=== PATIENT | female | born 1990 | race Caucasian/White ===

== ENCOUNTER 2016-11-23 07:15 | Day surgery (SDC) | payer BC ==
--- NOTE | ~2016-11-23 | OP ---
Record Of Operation [facility] [address] [place]. [address] NAME: ASHLY STAPLETON : 89 STATUS : [facility] – [place], [place] PAT#: [id number] AGE: 26 ADM/REG DATE : 11/23/16 MR#: [id number] REPORT SERV DATE: 11/23/16 DICTATED BY: MARTINEZ BAKER DATE: 11/23/16 REPORT STATUS : Draft TRANSCRIBED BY: MODL DATE: 11/23/16 DATE OF PROCEDURE: PREOPERATIVE DIAGNOSIS: Herniated nucleus pulposus with extrusion, left L5-S1. POSTOPERATIVE DIAGNOSIS: Herniated nucleus pulposus with extrusion, left L5-S1. PROCEDURE: 1. Microscopic and navigation-assisted surgery. 2. Left L5-S1 microdiskectomy. SURGEON: Martinez Baker D.O. CONSULTING ENGINEER: Jose Robison. ANESTHESIA: General. ESTIMATED BLOOD LOSS: Less than 5 mL. INDICATIONS FOR SURGERY: A very pleasant 26-year-old female, with intractable left hip and leg pain that has been present for several weeks. The pain now over the last couple weeks has become so intolerable that she can not take it another day, the pain is 10/10. The pain is all the way down the buttock into the legs. She has essentially no back pain. She has tried different types of conservative care which has not helped, in fact it has gotten worse. She has had a plan MRI showing a very large extruded disk herniation with severe impingement of the S1 nerve root on the left. She is brought to surgery, due to the above circumstances, and failure of conservative care. Prior to surgery, risks, benefits, alternatives, and expectations were explained. Consent form has been signed. Please note, because of the complexity of the surgery and the need to identify correct level of surgery intraoperatively, as well as desire to carry out the safest and most precise dissection, I feel intraoperative navigation is mandatory. DESCRIPTION OF PROCEDURE: Antibiotic prophylaxis was given. Neurophysiology monitoring leads were inserted. The patient was brought to the operative suite. General anesthetic including endotracheal intubation was carried out. The patient was placed prone on a Bala spine frame. Bony prominences were carefully padded. Thoracolumbar spine was scrubbed with Hibiclens solution. DuraPrep was painted. Sterile drapes were applied. Intraoperative CT scan with O-arm was obtained, CT information used to register the navigational system. A 2 cm skin incision was carried out at the midline at L5-S1, which was identified and marked with navigational assistance. A blunt navigated probe was placed through the fascia and muscle and docked over the interlaminar space at L5-S1. Muscle dilators were inserted, followed by placement of a tubular retractor attached to an arm mount on the table. The Record Of Operation [facility] [address] [place]. [address] NAME: ASHLY STAPLETON : 89 STATUS : [facility] – [place], [place] PAT#: [id number] AGE: 26 ADM/REG DATE : 11/23/16 MR#: [id number] REPORT SERV DATE: 11/23/16 DICTATED BY: MARTINEZ BAKER DATE: 11/23/16 REPORT STATUS : Draft TRANSCRIBED BY: NIR DATE: 11/23/16 microscope was sterilely draped and used throughout the remainder of the procedure. With navigational assistance, I determined if I needed to remove any of the lamina of L5, and I did need to remove approximately 10% of the inferior lamina of L5 in order to reach the cephalad boundary of the disk space. I used a 3 mm ady bur, removed approximately 10% of the inferior lamina. None of the medial facet joint that required removal. The lateral ligamentum flavum was elevated and removed. This exposed a very large extruded disk herniation, which was impinging the S1 nerve root laterally. The diskectomy was removed with pituitary rongeurs, and after the diskectomy there was no further compression at all on the thecal sac or the nerve root. The wound was irrigated. The retractor was removed. No bleeding was noted. The fascia was allowed to reapproximate itself. The subcutaneous tissue was closed with 2-0 Vicryl sutures, 2-0 vertical mattress nylon suture was used for skin closure. Sterile dressings were applied. The patient returned to supine position, awakened, extubated, taken to recovery room in satisfactory condition having tolerated the procedure well. Sponge, needle, and instrument counts were correct. No intraoperative complications were noted. CLEMENTINA/NIR Martinez Baker D.O. / [id number] CC: Martinez Baker D.O.
[~2016-11-23 07:15] MED LIST: FLEX PO; NORCO1 TA1 PO
== END 2016-11-23 14:48 | disposition home or self-care (01) ==
LOC: SDC 07:15
PROVIDERS: Orthopaedic Surgery Orthopaedic Surgery of the Spine
PROC: 01NB0ZZ Release Lumbar Nerve, Open Approach (ICD-10-PCS; 2016-11-23)
PROC: 0SB20ZZ Excision of Lumbar Vertebral Disc, Open Approach (ICD-10-PCS; principal; 2016-11-23 10:15)
DX: M51.17 Intervertebral disc disorders with radiculopathy, lumbosacral region (principal); E16.2 Hypoglycemia, unspecified; F17.210 Nicotine dependence, cigarettes, uncomplicated; Z79.891 Long term (current) use of opiate analgesic; Z79.899 Other long term (current) drug therapy
CPT/HCPCS: 82962; 84703; 88304; 88311; A9270-GY; J0690; J1170; J1885; J2250; J2274; J2405; J2710; J3010

== ENCOUNTER 2016-12-13 04:41 | Emergency (ER) | payer BC | END 2016-12-13 05:43 | disposition home or self-care (01) | LOC: ER 04:41 | DX: M54.5 Low back pain (principal); Z79.899 Other long term (current) drug therapy | CPT/HCPCS: 72131; 96372; 99284; J2800 ==

== ENCOUNTER 2016-12-27 09:22 | Day surgery (SDC) | payer BC ==
--- NOTE | ~2016-12-27 | OP ---
Record Of Operation [facility] [address] [place]. [address] NAME: ASHLY STAPLETON : 89 STATUS : [facility]#: [id number] AGE: 26 ADM/REG DATE : 12/27/16 MR#: [id number] REPORT SERV DATE: 12/27/16 DICTATED BY: MARTINEZ BAKER DATE: 12/27/16 REPORT STATUS : Draft TRANSCRIBED BY: MODL DATE: 12/27/16 DATE OF PROCEDURE: 12/27/2016 PREOPERATIVE DIAGNOSES: 1. Acute intractable left leg pain. 2. Large recurrent herniated nucleus pulposus, left L5-S1. POSTOPERATIVE DIAGNOSES: 1. Acute intractable left leg pain. 2. Large recurrent herniated nucleus pulposus, left L5-S1. PROCEDURE: 1. Microscopic and navigation assisted surgery. 2. Left L5-S1 microdiskectomy. SURGEON: Martinez Baker D.O. CHRONOMETER TESTER: Jose Robison. ANESTHESIA: General. ESTIMATED BLOOD LOSS: 10 mL. INDICATIONS FOR SURGERY: A 26-year-old female, who had a left-sided L5-S1 microdiskectomy about a month ago. She was doing exceptionally well and had absolutely no pain postoperatively, and returned to work, and was doing everything she normal wanted to do, but just had a sudden return of severe pain just a few days ago. The pain was 10/10 to the point she could stand, walk, or do anything. She was immediately seen by my physician's dental office assistant, who did a new MRI which showed a very large recurrent HNP with impingement at L5- S1. The patient was seen yesterday in the office and I advised her that, we could try it treating it conservatively if she wanted to try, and she did want to try conservative care, we gave her some pain pills, she was on steroids etc., but she came to the office this morning saying she just could not take the pain any longer. She had to do some immediately. The patient having been seen by my physician's dental office assistant, was sent to the hospital for a repeat microdiskectomy after she discussed it with me. I advised and I felt this was only other option we ever had at this point. The patient knows there is always a known risk of a third time recurrent herniation and if that should occur she will have to have additional surgery up to and including fusion, because she has lost so much disk already, and was at risk, and is at risk of developing instability. There is always a risk of infection. There can be third time recurrent herniation. There could be injury to the thecal sac, nerve roots, numbness, tingling, weakness, paralysis, etc. No guarantees that this will resolve any or all symptoms. Consent form has been signed. PROCEDURE IN DETAIL: Antibiotic prophylaxis was given, brought to the operative suite, general anesthetic including endotracheal intubation was administered. She was placed prone on a Bala spine frame. Bony prominences were carefully padded. Thoracolumbar spine was Record Of Operation [facility] [address] [place]. [address] NAME: ASHLY STAPLETON : 89 STATUS : [facility]#: [id number] AGE: 26 ADM/REG DATE : 12/27/16 MR#: [id number] REPORT SERV DATE: 12/27/16 DICTATED BY: MARTINEZ BAKER DATE: 12/27/16 REPORT STATUS : Draft TRANSCRIBED BY: NIR DATE: 12/27/16 scrubbed with Hibiclens solution. DuraPrep was painted. Sterile drapes were applied. Because of the complexity of surgery and the need to identify the correct level of surgery intraoperatively, as well as the desire to carry out the safest, and most precise dissection, we felt that intraoperative navigation was mandatory. Intraoperative CT scan with O-arm was obtained, CT information was used to register the navigational system. With navigational assistance, I identified L5-S1. The old incision was re-incised, I incised the subcutaneous tissue. A blunt navigated probe was placed through the fascia and muscle, and docked over the interlaminar space. Muscle dilator was inserted, followed by placement of a tubular retractor attached to an arm mount on the table. The microscope was sterilely draped and used throughout the remainder of the procedure. With navigational assistance, I identified the edge of the bone, I removed a very small amount of the inferior lamina of L5, and medial facet joint with a ady bur. This gave me window to then released the epidural adhesions attached to the thecal sac. I was then able to mobilize the thecal sac and the S1 nerve root slightly medial. A large extruded herniation was removed in one very large piece. Afterwards no further compression by either disk, long bone, or ligament was found. I tried to remove any loose fragments within the disk space itself. The wounds were copiously irrigated. The retractor was removed. No bleeding was noted. The fascial layer was closed with a single interrupted #1 Vicryl suture. The subcutaneous tissue closed with 2-0 Vicryl sutures, 2-0 vertical mattress nylon suture was used for skin closure. Sterile dressings were applied. The patient was awakened, extubated, and taken recovery room in satisfactory condition having tolerated procedure well. Sponge, needle, and instruments counts were correct. No intraoperative complications were noted. /MODL Martinez Baker D.O. / [id number] CC: Martinez Baker D.O.
== END 2016-12-27 17:09 | disposition home or self-care (01) ==
LOC: SDC 09:22
PROVIDERS: Orthopaedic Surgery Orthopaedic Surgery of the Spine
PROC: 01NB0ZZ Release Lumbar Nerve, Open Approach (ICD-10-PCS; 2016-12-27)
PROC: 8E09XBZ Computer Assisted Procedure of Head and Neck Region (ICD-10-PCS; 2016-12-27)
PROC: 0SB20ZZ Excision of Lumbar Vertebral Disc, Open Approach (ICD-10-PCS; principal; 2016-12-27 10:45)
DX: M51.27 Other intervertebral disc displacement, lumbosacral region (principal); M79.662 Pain in left lower leg; F17.210 Nicotine dependence, cigarettes, uncomplicated; F41.9 Anxiety disorder, unspecified; Z79.899 Other long term (current) drug therapy
CPT/HCPCS: 76000; 84703; 88304; A9270-GY; J0690; J1170; J2250; J2274; J2370; J2405; J2550; J2710; J3010